=== PATIENT | male | born 1970 | race Caucasian/White ===

== ENCOUNTER 2020-09-11 06:54 | Outpatient (REF) | payer OTHER, SELFPAY ==
--- NOTE | ~2020-09-11 | XR_ITS ---
EXAMINATION: XR FOOT, RIGHT CLINICAL INFORMATION: Right foot pain. Question osteoarthritis. COMPARISON: Right foot x-ray April 29, 2016 TECHNIQUE: AP, lateral, and oblique views of the right foot. FINDINGS: Bones of the midfoot are well aligned. No tarsal, metatarsal or phalangeal fracture. Prominent osteophyte again noted involving the lateral aspect of the first MCP joint. Other MTP and IP joints are well-maintained diffusely. No focal soft tissue swelling. Prominent posterior and plantar calcaneal enthesophytes again noted. No gross ankle joint effusion. XR/XR foot RT min 3V IMPRESSION: Similar mild degenerative changes of the foot without fracture.
[2020-09-11 08:32] LABS: MANUAL DIFF FLAG NO
[2020-09-11 08:39] LABS: Basophils Absolute Auto 0.1 X10*3/uL (0.0-0.2); Basophils Percent Auto 0.7 % (0-2); Eosinophils Absolute Auto 0.3 X10*3/uL (0.0-0.4); Eosinophils Percent Auto 3.6 % (0-4); Hematocrit 43.9 % (42-52); Hemoglobin 14.8 g/dl (14.0-18.0); Imm Gran Abs Auto 0.03 X10*3/uL (0.00-0.03); Imm Gran Pct Auto 0.4 % (0.0-0.4); Lymphocytes Percent Auto 29.8 % (20-40); Mean Corpuscular HGB Conc 33.7 g/dl (31.0-36.0); Mean Corpuscular Hemoglobin 29.2 pg (27.0-33.0); Mean Corpuscular Volume 86.8 fL (80-98); Mean Platelet Volume 8.9 fL (9.4-12.4); Monocytes Absolute Auto 0.5 X10*3/uL (0.1-1.2); Monocytes Percent Auto 7.7 % (2-11); Neutrophils Percent Auto 57.8 % (45-73); Platelet Count 195 X10*3/uL (160-400); Red Blood Count 5.06 X10*6/uL (4.60-5.80); Red Cell Distribution Width 12.8 % (11.0-16.0); White Blood Count 6.9 X10*3/uL (4.8-10.8)
[2020-09-11 09:18] LABS: Alanine Aminotransferase 45 U/L (0-40); Albumin Level 4.3 g/dL (3.5-5.0); Alkaline Phosphatase 69 U/L (39-117); Anion Gap 12 (12-20); Aspartate Amino Transferase 25 U/L (5-37); Bilirubin Total 0.7 mg/dL (0.0-1.0); Blood Urea Nitrogen 15 mg/dL (9-16); Calcium 9.3 mg/dL (8.4-10.2); Carbon Dioxide 29 mmol/L (22-29); Chloride 100 mmol/L (96-108); Cholesterol 210 mg/dL; Estimated Glomerular Filt Rate > 60; Glucose Fasting 168 mg/dL (60-99); HDL Cholesterol 28 mg/dL; LDL Cholesterol Calculated 117 mg/dl; Potassium 5.1 mmol/L (3.3-5.1); Sodium 136 mmol/L (135-145); Total Protein 7.4 g/dL (6.5-8.0); Triglycerides 329 mg/dL
[2020-09-11 09:25] LABS: Thyroid Stimulating Hormone 3.81 uIU/mL (0.32-4.0)
[2020-09-11 11:04] LABS: Glucose Urine UA NEG (NEG); Leukocyte Esterase Urine NEG (NEG); Nitrite Urine NEG (NEG); PH 6.5 (5.0-8.0); Urine Blood NEG (NEG); Urine Ketones NEG (NEG); Urine Protein NEG (NEG-TRACE)
[2020-09-11 11:07] LABS: Appearance Urine CLEAR; Color Urine YELLOW
[2020-09-11 11:32] LABS: Creatinine Urine 143.64 mg/dL
== END 2020-09-11 06:55 | disposition home or self-care (01) ==
LOC: HO.LAB 06:54
PROVIDERS: PCP Internal Medicine; Visit Provider Internal Medicine
DX: Z00.00 Encounter for general adult medical examination without abnormal findings (principal); M79.641 Pain in right hand; R63.5 Abnormal weight gain; Z12.5 Encounter for screening for malignant neoplasm of prostate
CPT/HCPCS: 36415; 73630; 80053; 80061; 81003; 82043; 84153; 84443; 85025

== ENCOUNTER 2020-11-26 10:12 | Day surgery (SDC) | payer OTHER, SELFPAY ==
[2020-11-21 15:34] VITALS: BMI 46.3
--- NOTE | 2020-11-23 08:20 | P.CONAN_ITS ---
Documented by User: Sarah Gtz 11/23/20 10:49 HPI - Anesthesia Eval Consult details Narrative: 50yo M for Upper Endoscopy and Colonoscopy [facility] Past Medical History Medical History COPD (chronic obstructive pulmonary disease) GERD (gastroesophageal reflux disease) Heel pierre Social History Social History Patient Tobacco Use Status: Former Tobacco user Use of substances other than those prescribed or required for medical reasons: Yes Are you DNR?: No Advance Directives: No Advance Directives Information Provided: Yes Meds Allergies Allergy/AdvReac Type Severity Reaction Status Date / Time No Known Allergies Allergy Verified 11/26/20 11:31 Home Medications Medication Instructions Recorded Confirmed Last Taken Type omeprazole 1 cap PO DAILY 11/23/20 11/23/20 11/26/20 08:30 History piroxicam 1 cap PO DAILY 11/23/20 11/23/20 Unknown History tadalafil 1 tab PO 11/23/20 11/23/20 Unknown History Exam Exam Date and Time: November 23, 2020 0820 Height,Weight and Vital Signs: Height 5 ft 9 in Weight 142.428 kg Assessment and Plan Assessment Anesthesia Assessment: Chart Reviewed Documented by User: Genny Latham 11/26/20 12:44 [facility] Past Medical History Medical History COPD (chronic obstructive pulmonary disease) GERD (gastroesophageal reflux disease) Heel pierre Social History Social History Patient Tobacco Use Status: Former Tobacco user Use of substances other than those prescribed or required for medical reasons: Yes Are you DNR?: No Advance Directives: No Advance Directives Information Provided: Yes Meds Allergies Allergy/AdvReac Type Severity Reaction Status Date / Time No Known Allergies Allergy Verified 11/26/20 11:31 Home Medications Medication Instructions Recorded Confirmed Last Taken Type omeprazole 1 cap PO DAILY 11/23/20 11/23/20 11/26/20 08:30 History piroxicam 1 cap PO DAILY 11/23/20 11/23/20 Unknown History tadalafil 1 tab PO 11/23/20 11/23/20 Unknown History Exam Airway Mallampati Class: II (Edentulous) TM Dist: >3cm Neck ROM: Full Denture: Upper and Lower Loose/Missing/Broken Teeth: Yes, Upper and Lower Heart: RRR Lungs: distant BS Assessment and Plan Assessment Anesthesia Assessment: Anesthesia Plan Discussed and Chart Reviewed Final Anesthetic Review NPO: Yes ASA Class: III Final Preanesthetic Review: Meds/Allgs Chart Reviewed, Consent Obtained/Reviewed and Anes Risks/Benef Reviewed Patient Risk: Intermediate Procedure Risk: Intermediate Anesthetic Plan Anesthetic Plan: MAC: Disposition: Standard PACU
[2020-11-26 11:57] VITALS: BP 131/91; PULSE 83; RESP 18; TEMP 36.3; O2SAT 98
[2020-11-26] MEDS: Lactated Ringers 1,000 ML 100 ML IVCONT (11:58)
[2020-11-26 14:08] VITALS: BP 118/66; PULSE 80; RESP 18; TEMP 37; O2SAT 95
--- NOTE | 2020-11-26 14:15 | P.BOP_ITS ---
Brief Operative Note Date of Service: 11/26/20 Pre-op diagnosis: GERD, Screening Post-op diagnosis: other (Colon polyps, Hiatal hernia, Duodenitis) Procedure: EGD with biopsies, Colonoscopy to the cecum with snare polypectomy at 30cm, and in the cecum with placement of 4 Resolution clips on the cecal polypectomy site. Surgeon: Mac Stout Anesthesia: MAC Was an Tetryl Boiling Tub Operator used for this Procedure?: No Estimated blood loss (mL): 4.0 Pathology: other (A. Gastric antrum B. EG Junction at 40cm C. Cecal polyp D. Polyp at 30cm) Condition: stable Disposition: PACU
[2020-11-26 14:23] VITALS: BP 126/85; PULSE 72; RESP 20; O2SAT 97
--- NOTE | 2020-11-26 15:02 | OP_ITS ---
SURGEON: Mac Stout MD PREOPERATIVE DIAGNOSIS: POSTOPERATIVE DIAGNOSIS: PROCEDURE PERFORMED: Esophagogastroduodenoscopy with biopsies, and colonoscopy to the cecum with snare polypectomy and placement of resolution clips. Full consent has been obtained from him for this, including risks of bleeding and perforation. ESTIMATED BLOOD LOSS: COMPLICATIONS: ANESTHESIA: Monitored anesthesia care. ASSISTANTS: SPECIMENS: PREOPERATIVE DIAGNOSES: Gastroesophageal reflux and colorectal cancer screening. POSTOPERATIVE DIAGNOSES: Gastroesophageal reflux and colorectal cancer screening, hiatal hernia, mild duodenitis, colon polyps, internal hemorrhoids. DESCRIPTION OF PROCEDURE: The patient was placed in the left lateral decubitus position. The Olympus video gastroscope was passed in the posterior oropharynx and upper esophagus under direct vision. The scope was passed slowly to the distal esophagus. The gastroesophageal junction appeared at 40 cm. There was some minimal irregularity consistent with reflux, but no evidence of any esophagitis nor any definitive evidence of Harris's mucosa. There was a small hiatal hernia. The scope was advanced to the pylorus and the duodenum was cannulated to the descending portion. The duodenum including the bulb was carefully inspected and appeared normal other than a very minimal duodenitis in the duodenal bulb. The scope was withdrawn back into the stomach. The gastric antrum and body appeared normal with good peristalsis. The scope was retroflexed visualizing the proximal stomach carefully, which appeared normal, without any sign of mass or ulceration. The scope was straightened. Biopsies were obtained from the gastric antrum. The scope was withdrawn back into the esophagus. Biopsies were obtained at the EG junction at 40 cm. Proximal to this, the esophageal mucosa appeared normal. The scope was withdrawn from the patient. He was turned around for the colonoscopy. The digital rectal exam revealed no abnormalities. The Olympus video pediatric colonoscope was entered into the rectum and advanced easily to the cecum. Once in the cecum, I did identify cecal pouch with appendiceal orifice and a normal-appearing ileocecal valve. The entire cecum was well visualized. In the cecum, was a lobulated raised polypoid lesion measuring approximately 3 cm in length and 1 cm in diameter. The remainder of the cecum appeared normal. This was removed in piecemeal fashion with snare polypectomy. Post- polypectomy, there did appear to be some small amount of residual polyp tissue remaining. However, I opted to place 4 resolution clips onto the polypectomy site rather than perform anymore polyp removal. There was good deployment and good hemostasis, as well as good opposition of the polypectomy borders. I then used a retrieval net to obtain the large pieces of the polyp by withdrawing it out of the colonoscope on 2 separate occasions. The scope was advanced back to the polypectomy site, which appeared to be stable without any sign of bleeding and the [address]. Again, there may have been some residual polyp tissue remaining, but this was not removed. The scope was then slowly withdrawn assessing all mucosal surfaces carefully. For the most part, preparation was excellent. At 30 cm, was an approximately 10 mm polyp, which was snared and recovered by suction. The polypectomy site appeared clean, without any sign of residual polyp nor bleeding. I did not visualize any other polyps, colitis, nor angiodysplasia. In the rectum, the scope was retroflexed visualizing internal hemorrhoids, but no other pathology. The rectal mucosa appeared normal. The scope was straightened out and withdrawn from the patient. He tolerated both procedures well and was returned to the recovery area in stable condition. IMPRESSION: 1. Colon polyps, status post snare polypectomy, with placement of resolution clips on the cecal polypectomy site. 2. Internal hemorrhoids. 3. Hiatal hernia, gastroesophageal reflux. 4. Mild duodenitis. PLAN: The results of the pathology will be checked. In regard to the cecal polyp, we most likely will need to go back and do a followup colonoscopy within 6 months unless the cecal polyp shows signs of carcinoma, in which case he would probably need surgery . He will continue his omeprazole for symptomatic relief of his reflux. He was advised not to use any aspirin nor NSAIDs for 2 weeks. He will be seen in followup. This has been discussed with his . MD CARLOS Sierra/MAAME / [id number] CHELSEA
== END 2020-11-26 14:51 | disposition home or self-care (01) ==
PROVIDERS: PCP Internal Medicine; Visit Provider Internal Medicine
PROC: (CPT 45385; principal; 2020-11-26 11:40)
DX: Z12.11 Encounter for screening for malignant neoplasm of colon (principal); D12.0 Benign neoplasm of cecum; D12.5 Benign neoplasm of sigmoid colon; K64.8 Other hemorrhoids; K21.9 Gastro-esophageal reflux disease without esophagitis; K29.80 Duodenitis without bleeding; K44.9 Diaphragmatic hernia without obstruction or gangrene; J44.9 Chronic obstructive pulmonary disease, unspecified; Z79.899 Other long term (current) drug therapy; Z87.891 Personal history of nicotine dependence
CPT/HCPCS: 45385; 43239; 88305; 88342; J2405; J2765

== ENCOUNTER 2022-01-01 12:12 | Day surgery (SDC) | payer OTHER, SELFPAY ==
[2021-12-26 12:24] VITALS: BMI 44.9
[2022-01-01 12:31] VITALS: BP 157/96; PULSE 78; RESP 18; TEMP 36.5; O2SAT 96
--- NOTE | 2022-01-01 12:59 | HO.ANESPROP2 ---
[facility] Past Medical History Medical History COPD (chronic obstructive pulmonary disease) GERD (gastroesophageal reflux disease) Heel spur Obesity Family History Family history of problems with anesthesia: No Surgical History Surgical History (Updated 12/26/21 @ 12:24 by Alma Martinez RN) History of esophagogastroduodenoscopy (EGD) Hx of colonoscopy History of Problems with Anesthesia: No Social History Social History Patient Tobacco Use Status: Former Tobacco user Use of substances other than those prescribed or required for medical reasons: Yes Substance Use Frequency: Weekly Are you DNR?: No Advance Directives: No Advance Directives Information Provided: Yes Meds Allergies Allergy/AdvReac Type Severity Reaction Status Date / Time No Known Allergies Allergy Verified 12/26/21 12:21 Active Medications: Current Medications Ondansetron HCl (Ondansetron Hcl 4 Mg/2 Ml Vial) 4 mg IVPUSH ONCE PRN PRN Reason: Nausea and Vomiting Sodium Biphosphate/Sodium Phosphate (Sodium Phosphate,[place]la[place]-Dibasic 133 Ml Enema) 133 ml WA ONCE PRN PRN Reason: Poor Colonoscopy Prep Results Home Medications Medication Instructions Recorded Confirmed Last Taken Type omeprazole 20 mg capsule,delayed 1 cap PO DAILY 11/23/20 12/26/21 11/26/20 08:30 History release tadalafil 10 mg tablet 1 tab PO 11/23/20 11/23/20 Unknown History Exam Exam Date and Time: January 01, 2022 1259 Height,Weight and Vital Signs: Height 5 ft 9 in Weight 137.892 kg Last Vital Signs Temp 97.7 F 01/01/22 12:31 Pulse 78 01/01/22 12:31 Resp 18 01/01/22 12:31 BP 157/96 H 01/01/22 12:31 Pulse Ox 96 01/01/22 12:31 O2 Del Method 01/01/22 12:31 Airway Mallampati Class: III TM Dist: >3cm Neck ROM: Full Denture: Upper and Lower Heart: rrr Lungs: clear Assessment and Plan Final Anesthetic Review Family History of Problems with Anesthesia: No History of Problems with Anesthesia: No NPO: Yes ASA Class: II Final Preanesthetic Review: No Changes in Pt Med Stat, Meds/Allgs Chart Reviewed, Consent Obtained/Reviewed and Anes Risks/Benef Reviewed Patient Risk: Intermediate Procedure Risk: Low Anesthetic Plan Anesthetic Plan: MAC: Disposition: Standard PACU
[2022-01-01 14:20] VITALS: BP 127/74; PULSE 77; RESP 16; TEMP 36.4; O2SAT 96
--- NOTE | 2022-01-01 14:23 | P.BOP_ITS ---
Brief Operative Note Date of Service: 01/01/22 Pre-op diagnosis: Screening, History of colon polyps Post-op diagnosis: other (Colon polyps) Procedure: Colonoscopy to the cecum with cold snare polypectomy x 2 at approx 60cm, hot snare polypectomy with placement of 2 Resolution clips in the proximal transverse colon, and hot snare polypectomy with placement of 3 Resolution clips in the cecum Surgeon: Mac Stout Anesthesia: MAC Was an Animal Caregiver used for this Procedure?: No Estimated blood loss (mL): 2.0 Pathology: other (A. Proximal transverse colon polyp B. Cecal polyp C. Polyps at 60cm) Condition: stable Disposition: PACU
[2022-01-01 14:35] VITALS: BP 126/98; PULSE 73; RESP 16; TEMP 36.8; O2SAT 97
--- NOTE | 2022-01-01 15:03 | PC.NURSE ---
dressing at bedside no complaints.
--- NOTE | 2022-01-02 02:30 | OP_ITS ---
SURGEON: Mac Stout MD INDICATIONS: The patient presents for evaluation of personal history of colon polyps and colorectal cancer screening. Full consent obtained from him for this, including risks of bleeding and perforation. PREOPERATIVE DIAGNOSIS: POSTOPERATIVE DIAGNOSIS: Colorectal cancer screening and personal history of colon polyps. Colon polyps, sigmoid diverticulosis, and internal hemorrhoids. PROCEDURE PERFORMED: ESTIMATED BLOOD LOSS: COMPLICATIONS: ANESTHESIA: Monitored anesthesia care. ASSISTANTS: SPECIMENS: PREOPERATIVE DIAGNOSES: Colorectal cancer screening and personal history of colon polyps. DESCRIPTION OF PROCEDURE: The patient was placed in the left lateral decubitus position. The digital rectal exam revealed no abnormalities. The Olympus video pediatric colonoscope was entered into the rectum and advanced easily to the cecum. Once in the cecum, I did identify cecal pouch with appendiceal orifice and a normal-appearing ileocecal valve. The entire cecum was well visualized. In the cecum, in an area of scarring from the previous polypectomy from last year, there was some residual polyp tissue. One area was approximately 1.5 cm in diameter. The other area was only 5 mm in diameter. The remainder of the area appeared consistent with scarring, but no other sign of residual polyp. The residual polyp areas were both removed by hot snare polypectomy and recovered by suction. There was no sign of any definitive residual polyp tissue nor any bleeding. I did place two Resolution clips on the larger polyp site and a single resolution clip on the smaller one. There was good deployment and good hemostasis. The remainder of the cecum and ileocecal valve appeared normal. The scope was then slowly withdrawn assessing all mucosal surfaces carefully. Preparation was excellent. In the proximal transverse colon, was an approximately 1.2 cm polyp, which was removed by hot snare polypectomy and recovered by suction. Post-polypectomy, there did not appear to be any residual polyp tissue nor bleeding. I did place two Resolution clips on the polypectomy site with good deployment and good hemostasis. At approximately 60 cm, were two less than 5 mm polyps, which were each removed by cold snare polypectomy and recovered by suction. There was no sign of any residual polyp tissue nor any sign of significant bleeding. I did not visualize any other polyps, colitis, nor angiodysplasia. There was a mild amount of sigmoid diverticulosis. In the rectum, scope was retroflexed visualizing some small internal hemorrhoids, but no other pathology. The rectal mucosa appeared normal. The scope was straightened and withdrawn from the patient. He tolerated the procedure well and was returned to the recovery area in stable condition. IMPRESSION: 1. Colon polyps. 2. Mild diverticulosis. 3. Internal hemorrhoids. PLAN: The results of the pathology will be checked. He was advised not to use any aspirin and NSAIDs for least 2 weeks. He should undergo another colonoscopy between 1 and 2 years. He will see me otherwise on a p.r.n. basis. This has been discussed with his . PROCEDURES PERFORMED: Colonoscopy to the cecum with hot snare polypectomies, cold snare polypectomies, and placement of Resolution clips. MD CARLOS Sierra/MAAME / [id number] MTDJeny
== END 2022-01-01 15:30 | disposition home or self-care (01) ==
PROVIDERS: PCP Internal Medicine; Visit Provider Internal Medicine
PROC: 0DJD8ZZ Inspection of Lower Intestinal Tract, Via Natural or Artificial Opening Endoscopic (ICD-10-PCS; CPT 45378; principal; 2022-01-01 13:50)
DX: Z12.11 Encounter for screening for malignant neoplasm of colon (principal); Z86.010 Personal history of colon polyps; Z83.71 Family history of colonic polyps; D12.0 Benign neoplasm of cecum; D12.3 Benign neoplasm of transverse colon; D12.4 Benign neoplasm of descending colon; K57.30 Diverticulosis of large intestine without perforation or abscess without bleeding; K64.8 Other hemorrhoids; K21.9 Gastro-esophageal reflux disease without esophagitis; J44.9 Chronic obstructive pulmonary disease, unspecified; Z79.1 Long term (current) use of non-steroidal anti-inflammatories (NSAID); Z79.899 Other long term (current) drug therapy
CPT/HCPCS: 45385; 88305

== ENCOUNTER 2022-03-20 06:29 | Outpatient (REF) | payer OTHER, SELFPAY ==
[2022-03-20 06:34] LABS: MANUAL DIFF FLAG NO
--- NOTE | 2022-03-20 06:49 | ECG_ITS ---
Test Reason : r/o ischemia Blood Pressure : / mmHG Vent. Rate : 065 BPM Atrial Rate : 065 BPM P-R Int : 140 ms QRS Dur : 090 ms QT Int : 380 ms P-R-T Axes : 062 027 020 degrees QTc Int : 395 ms Normal sinus rhythm Normal ECG No previous ECGs available Referred By: Randall Sharpe Electronically Signed By:ANNELIESE SHARPE MD
[2022-03-20 07:24] LABS: Basophils Percent Auto 0.5 % (0-2); Eosinophils Absolute Auto 0.1 X10*3/uL (0.0-0.4); Eosinophils Percent Auto 2.1 % (0-4); Hematocrit 44.8 % (42.0-52.0); Hemoglobin 15.2 g/dl (14.0-18.0); Imm Gran Abs Auto 0.02 X10*3/uL (0.00-0.03); Imm Gran Pct Auto 0.4 % (0.0-0.4); Lymphocytes Absolute Auto 1.8 X10*3/uL (1.2-4.9); Lymphocytes Percent Auto 31.5 % (20-40); Mean Corpuscular HGB Conc 33.9 g/dl (31.0-36.0); Mean Corpuscular Hemoglobin 28.3 pg (27.0-33.0); Mean Corpuscular Volume 83.3 fL (80.0-98.0); Mean Platelet Volume 8.8 fL (9.4-12.4); Monocytes Absolute Auto 0.4 X10*3/uL (0.1-1.2); Monocytes Percent Auto 6.8 % (2-11); Neutrophils Absolute Auto 3.4 x10*3/uL (2.0-8.3); Neutrophils Percent Auto 58.7 % (45-73); Platelet Count 206 X10*3/uL (160-400); Red Blood Count 5.38 X10*6/uL (4.60-5.80); Red Cell Distribution Width 12.7 % (11.0-16.0); White Blood Count 5.7 X10*3/uL (4.8-10.8)
[2022-03-20 07:53] LABS: Alanine Aminotransferase 53 U/L (0-40); Albumin Level 4.5 g/dL (3.5-5.0); Alkaline Phosphatase 80 U/L (39-117); Anion Gap 18 (12-20); Aspartate Amino Transferase 41 U/L (5-37); Bilirubin Total 0.8 mg/dL (0.0-1.0); Blood Urea Nitrogen 14 mg/dL (9-16); Calcium 10.1 mg/dL (8.4-10.2); Carbon Dioxide 24 mmol/L (22-29); Chloride 99 mmol/L (96-108); Cholesterol 219 mg/dL; Estimated Glomerular Filt Rate > 60; Glucose Fasting 194 mg/dL (60-99); HDL Cholesterol 30 mg/dL; LDL Cholesterol Calculated 130 mg/dl; Potassium 4.3 mmol/L (3.3-5.1); Sodium 137 mmol/L (135-145); Total Protein 8.2 g/dL (6.5-8.0); Triglycerides 297 mg/dL
[2022-03-20 08:15] LABS: Prostate Specific Antigen 0.28 ng/mL (<0.05-4.0); Thyroid Stimulating Hormone 5.59 uIU/mL (0.32-4.0)
[2022-03-20 10:07] LABS: Vitamin B12 442 pg/mL (200-900)
== END 2022-03-20 06:30 | disposition home or self-care (01) ==
LOC: HO.LAB 06:29
PROVIDERS: PCP Internal Medicine; Visit Provider Internal Medicine
DX: Z00.00 Encounter for general adult medical examination without abnormal findings (principal); Z12.5 Encounter for screening for malignant neoplasm of prostate; R53.83 Other fatigue
CPT/HCPCS: 36415; 80053; 80061; 82607; 84153; 84443; 85025; 93005

== ENCOUNTER 2022-10-07 06:23 | Outpatient (REF) | payer OTHER, SELFPAY ==
[2022-10-07 08:04] LABS: Alanine Aminotransferase 40 U/L (0-40); Albumin Level 4.2 g/dL (3.5-5.0); Alkaline Phosphatase 77 U/L (39-117); Anion Gap 12 (12-20); Aspartate Amino Transferase 26 U/L (5-37); Bilirubin Total 0.8 mg/dL (0.0-1.0); Blood Urea Nitrogen 15 mg/dL (9-16); Calcium 9.4 mg/dL (8.4-10.2); Carbon Dioxide 28 mmol/L (22-29); Chloride 101 mmol/L (96-108); Cholesterol 157 mg/dL; Estimated Glomerular Filt Rate > 60; Glucose Fasting 223 mg/dL (60-99); HDL Cholesterol 27 mg/dL; LDL Cholesterol Calculated 91 mg/dl; Potassium 4.9 mmol/L (3.3-5.1); Sodium 136 mmol/L (135-145); Total Protein 7.3 g/dL (6.5-8.0); Triglycerides 199 mg/dL
== END 2022-10-07 06:24 | disposition home or self-care (01) ==
LOC: HO.LAB 06:23
PROVIDERS: PCP Internal Medicine; Visit Provider Internal Medicine
DX: E78.00 Pure hypercholesterolemia, unspecified (principal)
CPT/HCPCS: 36415; 80053; 80061

== ENCOUNTER 2022-11-21 06:11 | Outpatient (REF) | payer OTHER, SELFPAY ==
[2022-11-21 08:29] LABS: Anion Gap 16 (12-20); Blood Urea Nitrogen 14 mg/dL (9-16); Calcium 9.8 mg/dL (8.4-10.2); Carbon Dioxide 25 mmol/L (22-29); Chloride 101 mmol/L (96-108); Estimated Glomerular Filt Rate > 60; Glucose Random 195 mg/dL (60-115); Potassium 4.5 mmol/L (3.3-5.1); Sodium 137 mmol/L (135-145)
[2022-11-21 08:41] LABS: Estimated Average Glucose 206 mg/dL; Hemoglobin A1c % 8.8 %
[2022-11-21 08:50] LABS: Free T4 (Free Thyroxine) 0.97 ng/dL (0.71-1.85); Thyroid Stimulating Hormone 5.33 uIU/mL (0.32-4.0)
== END 2022-11-21 06:12 | disposition home or self-care (01) ==
LOC: HO.LAB 06:11
PROVIDERS: PCP Internal Medicine; Visit Provider Internal Medicine
DX: E11.9 Type 2 diabetes mellitus without complications (principal); E03.9 Hypothyroidism, unspecified; E78.00 Pure hypercholesterolemia, unspecified
CPT/HCPCS: 36415; 80048; 83036; 84439; 84443

== ENCOUNTER 2022-11-25 11:06 | Outpatient (REF) | payer OTHER, SELFPAY | END 2022-11-25 11:07 | disposition home or self-care (01) | LOC: HO.SH 11:06 | PROVIDERS: Visit Provider Internal Medicine | DX: Z01.118 Encounter for examination of ears and hearing with other abnormal findings (principal); H90.3 Sensorineural hearing loss, bilateral | CPT/HCPCS: 92557; 92567 ==

== ENCOUNTER 2023-01-24 11:51 | Outpatient (REF) | payer BC, SELFPAY ==
[2023-01-24 13:41] LABS: Estimated Average Glucose 180 mg/dL; Hemoglobin A1c % 7.9 % (<6.0)
[2023-01-24 13:46] LABS: Anion Gap 13 (12-20); Blood Urea Nitrogen 12 mg/dL (9-16); Calcium 9.6 mg/dL (8.4-10.2); Carbon Dioxide 26 mmol/L (22-29); Chloride 101 mmol/L (96-108); Estimated Glomerular Filt Rate > 60; Glucose Random 205 mg/dL (60-115); Potassium 4.6 mmol/L (3.3-5.1); Sodium 135 mmol/L (135-145)
[2023-01-24 14:04] LABS: Free T4 (Free Thyroxine) 0.85 ng/dL (0.71-1.85); Thyroid Stimulating Hormone 3.92 uIU/mL (0.32-4.0)
== END 2023-01-24 11:52 | disposition home or self-care (01) ==
LOC: HO.HMGCLDS 11:51
PROVIDERS: PCP Internal Medicine; Visit Provider Internal Medicine
DX: E11.9 Type 2 diabetes mellitus without complications (principal); E03.9 Hypothyroidism, unspecified
CPT/HCPCS: 36415; 80048; 83036; 84439; 84443

== ENCOUNTER 2023-04-16 06:00 | Outpatient (REF) | payer BC, SELFPAY ==
[2023-04-16 08:01] LABS: Estimated Average Glucose 166 mg/dL; Hemoglobin A1c % 7.4 % (<6.0)
[2023-04-16 08:15] LABS: Anion Gap 12 (12-20); Blood Urea Nitrogen 14 mg/dL (9-16); Calcium 9.4 mg/dL (8.4-10.2); Carbon Dioxide 27 mmol/L (22-29); Chloride 103 mmol/L (96-108); Estimated Glomerular Filt Rate > 60; Glucose Random 167 mg/dL (60-115); Potassium 4.3 mmol/L (3.3-5.1); Sodium 138 mmol/L (135-145)
== END 2023-04-16 06:01 | disposition home or self-care (01) ==
LOC: HO.LAB 06:00
PROVIDERS: PCP Internal Medicine; Visit Provider Internal Medicine
DX: E11.9 Type 2 diabetes mellitus without complications (principal); K21.9 Gastro-esophageal reflux disease without esophagitis; E78.00 Pure hypercholesterolemia, unspecified
CPT/HCPCS: 36415; 80048; 83036

== ENCOUNTER 2023-07-31 06:05 | Outpatient (REF) | payer BC, SELFPAY ==
[2023-07-31 06:26] LABS: MANUAL DIFF FLAG NO
[2023-07-31 06:56] LABS: Basophils Percent Auto 0.7 % (0-2); Eosinophils Absolute Auto 0.2 X10*3/uL (0.0-0.4); Eosinophils Percent Auto 2.9 % (0-4); Hematocrit 43.5 % (42.0-52.0); Imm Gran Abs Auto 0.02 X10*3/uL (0.00-0.03); Imm Gran Pct Auto 0.3 % (0.0-0.4); Lymphocytes Absolute Auto 2.1 X10*3/uL (1.2-4.9); Mean Corpuscular HGB Conc 34.5 g/dl (31.0-36.0); Mean Corpuscular Hemoglobin 28.4 pg (27.0-33.0); Mean Corpuscular Volume 82.4 fL (80.0-98.0); Mean Platelet Volume 8.5 fL (9.4-12.4); Monocytes Absolute Auto 0.5 X10*3/uL (0.1-1.2); Monocytes Percent Auto 8.8 % (2-11); Neutrophils Absolute Auto 3.1 x10*3/uL (2.0-8.3); Neutrophils Percent Auto 52.3 % (45-73); Platelet Count 189 X10*3/uL (160-400); Red Blood Count 5.28 X10*6/uL (4.60-5.80); Red Cell Distribution Width 12.9 % (11.0-16.0); White Blood Count 5.9 X10*3/uL (4.8-10.8)
[2023-07-31 07:02] LABS: Estimated Average Glucose 174 mg/dL; Hemoglobin A1c % 7.7 % (<6.0)
[2023-07-31 07:22] LABS: Alanine Aminotransferase 35 U/L (0-40); Albumin Level 4.2 g/dL (3.5-5.0); Alkaline Phosphatase 72 U/L (39-117); Anion Gap 10 (12-20); Aspartate Amino Transferase 24 U/L (5-37); Bilirubin Total 0.8 mg/dL (0.0-1.0); Blood Urea Nitrogen 12 mg/dL (9-16); Calcium 9.6 mg/dL (8.4-10.2); Carbon Dioxide 28 mmol/L (22-29); Chloride 103 mmol/L (96-108); Cholesterol 162 mg/dL (<200); Estimated Glomerular Filt Rate > 60; Glucose Fasting 181 mg/dL (60-99); HDL Cholesterol 28 mg/dL (>40); LDL Cholesterol Calculated 96 mg/dL (<100); Potassium 4.3 mmol/L (3.3-5.1); Sodium 137 mmol/L (135-145); Total Protein 7.8 g/dL (6.5-8.0); Triglycerides 194 mg/dL (<150)
[2023-07-31 07:40] LABS: Prostate Specific Antigen 0.25 ng/mL (<0.05-4.0)
[2023-07-31 07:41] LABS: Free T4 (Free Thyroxine) 0.91 ng/dL (0.71-1.85)
[2023-07-31 08:14] LABS: Creatinine Urine 249.23 mg/dL; Microalbum/Creatinine Ratio Ur 15.6 ug/mg cr (<30)
== END 2023-07-31 06:06 | disposition home or self-care (01) ==
LOC: HO.LAB 06:05
PROVIDERS: PCP Internal Medicine; Visit Provider Internal Medicine
DX: Z12.5 Encounter for screening for malignant neoplasm of prostate (principal); E11.9 Type 2 diabetes mellitus without complications; E78.00 Pure hypercholesterolemia, unspecified; K21.9 Gastro-esophageal reflux disease without esophagitis; R79.89 Other specified abnormal findings of blood chemistry
CPT/HCPCS: 36415; 80053; 80061; 82043; 82570; 83036; 84153; 84439; 84443; 85025

== ENCOUNTER 2023-12-01 06:10 | Outpatient (REF) | payer BC, SELFPAY ==
[2023-12-01 07:41] LABS: Estimated Average Glucose 189 mg/dL; Hemoglobin A1c % 8.2 % (<6.0)
[2023-12-01 07:48] LABS: Anion Gap 17 (12-20); Blood Urea Nitrogen 13 mg/dL (9-16); Calcium 9.5 mg/dL (8.4-10.2); Carbon Dioxide 23 mmol/L (22-29); Chloride 103 mmol/L (96-108); Estimated Glomerular Filt Rate > 60; Glucose Random 190 mg/dL (60-115); Potassium 4.6 mmol/L (3.3-5.1); Sodium 138 mmol/L (135-145)
== END 2023-12-01 06:11 | disposition home or self-care (01) ==
LOC: HO.LAB 06:10
PROVIDERS: PCP Internal Medicine; Visit Provider Internal Medicine
DX: E11.9 Type 2 diabetes mellitus without complications (principal); K21.9 Gastro-esophageal reflux disease without esophagitis
CPT/HCPCS: 36415; 80048; 83036

== ENCOUNTER 2024-06-30 06:06 | Outpatient (REF) | payer BC, SELFPAY ==
--- OUTSIDE RECORDS SUMMARY | 2024-06-30 06:09 | XMS_ITS | Patient Health Record ---
Author Organization [facility] Address [address] [place] [address] Care Team Providers Care Merchandise Stocker Name Role Phone Randall Fuchs MD Primary Care Provider Mac Spence Unavailable [phone] ALLERGIES Allergen (clinical drug ingredient) Drug/Non Drug Allergy documented on EMR Reaction Allergy Type Onset Date Status Pollen Pollen Unknown Allergy Active REASON FOR REFERRAL No Information MEDICATIONS Medication SIG (Take, Route, Fr equency, Duration) Notes Start Date End Date Status Omeprazole 20 MG Oral Act kelsi Advil Active IMMUNIZATIONS Vaccine Route Administration Date Status Comme nts Influenza Unknown 02/29/2020 Administered Influenza Unknown 01/16/2021 Administered SOCIAL HISTORY Tobacco Use: Social History Observation Description Date Details (start date - stop date) Never Smoker NA - NA Sex Assigned At : Social History Observation Description Sex Assigned At Unknown Tobacco Use/Smoking Question Answer Notes Patient is a nonsmoker Alcohol Screen Question Answer Notes Did you have a drink contain ing alcohol in the past year? Yes How often did you have a dri nk containing alcohol in the past year? 4 or more times a week (4 points) How many drinks did you have on a typical day when you were drinking in the past year? 3 or 4 drinks (1 point) How often did you have 6 or more drinks on one occasion in the past year? Less than monthly (1 point) Points 6 Interpretation Positive PROBLEMS Problem Type ICD Code Onset Dates Problem Status W/U Status Risk SNOMED Code Notes Problem Gastroesophageal reflux disease, unspecified whether esophagitis present (K21.9) Active confirmed 833294386 Problem Encounter for screening for malignant neoplasm of colon (Z12.11) Active confirmed 152386458 Problem Duodenitis (K29.80) Active confirmed Du odenitis (47000096) Problem Esophageal reflux (K21.9) Active confirmed Esophageal reflux (575384771) Problem Personal history of colonic polyps (Z86.010) Active confirmed History of poly p of colon (situation) (250111308) Problem Encounter for other preprocedural examination (Z01.818) Active confirmed Pre-procedure evaluation check (755231258) Problem Diverticulosis of colon (K57.30) Active confirmed Diverticulosi s of colon (045206948) PLAN OF TREATMENT Pending Test Test Name Order Date Pathology 01/01/2022 Future Test Test Name Order Date UPPER GI ENDOSCOPY 11/06/2020 COLONOSCOPY 11/06/2020 COLONOSCOPY 11/20/2021 Insurance Providers Payer Name Payer Address Payer Phone Subscriber Number Group Number Insured Name Patient Relationship to Insured Coverage Start Date Coverage End Date [facility] [address] [place] [phone] [id number] MATTHEW PEDROZA Self - patient is the insured MEDICAL (GENERAL) HISTORY Medical History History ICD Code Heel spurs COPD Sleep study was negative for sleep apnea GERD-upper endoscopy in November of 2020 revealed a small hiatal hernia, but no evidence of any significant esophagitis nor Harris's esophagus; there was a mild gastritis but the biopsies were negative for H. pylori Denies ME,DM,CVA,Lung disease,renal dise ase Screening colonoscopy in Nov revealed a large tubulovillous adenoma removed from the cecum and a relatively small tubular adenoma removed from the sigmoid colon; I felt that the majority of the cecal polyp was removed but did recommend a followup colonoscopy within 6-12 months. Surgical History Surgery Date(Month/Year)
--- OUTSIDE RECORDS SUMMARY | 2024-06-30 06:09 | XMS_ITS | Patient Health Record ---
Author Organization [facility] Address [address] [place] [address] Care Team Providers Care President And Chief Executive Officer Name Role Phone Randall Fuchs MD Primary Care Provider Karan Cartwright Unavailable [phone] Allergies Allergen (clinical drug ingredient) Drug/Non Drug Allergy documented on EMR Reaction Allergy Type Onset Date Status Pollen Pollen Unknown Allergy Active Reason For Referral No Information Medications Medication SIG (Take, Route, Fr equency, Duration) Notes Start Date End Date Status Feldene 20 MG 1 capsule with food Orally Once a day for 30 day(s) Active Walking Boot/Pneumatic As directed Wear Daily for Until further notice Active Physical Therapy . . . 2-3x/week for 3-4 weeks Active Omeprazole Active Immunizations Vaccine Route Administration Date Status Comme nts COVID-19 Pfizer BioNTech Vaccine Unknown 09/02/2020 Adm inistered 1# 08/10/20 Social History Tobacco Use: Social History Observation Description Date Details (start date - stop date) Former Smoker 09/21/1995 - NA Tobacco Use/Smoking Question Answer Notes Are you a: former smoker When did you start smoking? 09/21/1995 Additional Findings: Tobacco Non-User Ex-cigaret te smoker Alcohol Screen Question Answer Notes Did you have a drink contain ing alcohol in the past year? Yes How often did you have a dri nk containing alcohol in the past year? 2 to 3 times a week (3 points) Points 3 Interpretation Negative Tobacco use other than smoking: Question Answer Notes Are you an other tobacco user? No Plan Of Treatment No Information Insurance Providers Payer Name Payer Address Payer Phone Subscriber Number Group Number Insured Name Patient Relationship to Insured Coverage Start Date Coverage End Date [facility] [address] [place] [address] [phone] [id number] Petros Teran Self - patient is the insured Medical (General) History Medical History History ICD Code Chicken pox Surgical History Surgery Date(Month/Year) EGD/Colonoscopy 11/26/2020
[2024-06-30 06:32] LABS: MANUAL DIFF FLAG NO
[2024-06-30 07:49] LABS: Basophils Percent Auto 0.6 % (0-2); Eosinophils Absolute Auto 0.1 X10*3/uL (0.0-0.4); Eosinophils Percent Auto 2.3 % (0-4); Hematocrit 43.1 % (42.0-52.0); Hemoglobin 14.5 g/dl (14.0-18.0); Imm Gran Abs Auto 0.02 X10*3/uL (0.00-0.03); Imm Gran Pct Auto 0.4 % (0.0-0.4); Lymphocytes Absolute Auto 1.7 X10*3/uL (1.2-4.9); Lymphocytes Percent Auto 35.2 % (20-40); Mean Corpuscular HGB Conc 33.6 g/dl (31.0-36.0); Mean Corpuscular Hemoglobin 27.9 pg (27.0-33.0); Mean Platelet Volume 8.9 fL (9.4-12.4); Monocytes Absolute Auto 0.4 X10*3/uL (0.1-1.2); Monocytes Percent Auto 8.2 % (2-11); Neutrophils Absolute Auto 2.5 x10*3/uL (2.0-8.3); Neutrophils Percent Auto 53.3 % (45-73); Platelet Count 165 X10*3/uL (160-400); Red Blood Count 5.19 X10*6/uL (4.60-5.80); Red Cell Distribution Width 12.9 % (11.0-16.0); White Blood Count 4.8 X10*3/uL (4.8-10.8)
[2024-06-30 07:50] LABS: Appearance Urine Clear; Color Urine Yellow; Glucose Urine UA >=1000 mg/dL (Negative); Leukocyte Esterase Urine Negative (Negative); Nitrite Urine Negative (Negative); PH 6.5 (5.0-9.0); Specific Gravity - Urine >= 1.030 (1.005-1.025); UMIC TRIGGER UA YES; Urine Blood Negative (Negative); Urine Ketones Trace mg/dL (Negative); Urine Protein 30 (1+) mg/dL (Neg-Trace)
[2024-06-30 07:52] LABS: Bacteria Urine None Seen (None Seen); Hyaline Casts Urine 0-2 /LPF (0-2); RBC Urine 0-2 /HPF (0-2); Squamous Epithelial Cell Urine 0-2 /HPF (0-2); WBC Urine 0-5 /HPF (0-5)
[2024-06-30 07:55] LABS: Estimated Average Glucose 260 mg/dL; Hemoglobin A1c % 10.7 % (<6.0); Total Hemoglobin (HGBA1C) 3757.9295 umol/L
[2024-06-30 08:06] LABS: Creatinine Urine 179.11 mg/dL; Microalbum/Creatinine Ratio Ur 59.1 ug/mg cr (<30)
[2024-06-30 08:22] LABS: Alanine Aminotransferase 60 U/L (0-40); Albumin Level 4.2 g/dL (3.5-5.0); Alkaline Phosphatase 81 U/L (39-117); Anion Gap 16 (12-20); Aspartate Amino Transferase 46 U/L (5-37); Bilirubin Total 0.8 mg/dL (0.0-1.0); Blood Urea Nitrogen 10 mg/dL (9-16); Calcium 9.2 mg/dL (8.4-10.2); Carbon Dioxide 24 mmol/L (22-29); Chloride 101 mmol/L (96-108); Cholesterol 186 mg/dL (<200); Estimated Glomerular Filt Rate > 60; Glucose Fasting 248 mg/dL (60-99); HDL Cholesterol 31 mg/dL (>40); LDL Cholesterol Calculated 98 mg/dL (<100); Potassium 4.6 mmol/L (3.3-5.1); Sodium 136 mmol/L (135-145); Total Protein 7.9 g/dL (6.5-8.0); Triglycerides 287 mg/dL (<150)
[2024-06-30 08:42] LABS: Prostate Specific Antigen 0.24 ng/mL (<0.05-4.0)
== END 2024-06-30 06:07 | disposition home or self-care (01) ==
LOC: HO.LAB 06:06
PROVIDERS: PCP Internal Medicine; Visit Provider Internal Medicine
DX: E11.9 Type 2 diabetes mellitus without complications (principal); E78.00 Pure hypercholesterolemia, unspecified; K21.9 Gastro-esophageal reflux disease without esophagitis; Z12.5 Encounter for screening for malignant neoplasm of prostate
CPT/HCPCS: 36415; 80053; 80061; 81001; 82043; 82570; 83036; 84153; 85025

== ENCOUNTER 2024-09-20 15:35 | Outpatient (AMB) | payer BC, SELFPAY ==
--- NOTE | 2024-09-20 15:36 | MHC.PC.OV ---
Vital Signs 09/20/24 15:44 Height 5 ft 9 in Weight 131.542 kg BMI 42.8 BP 138/68 Respiration 16 Pulse 74 Pulse Source Pulse Oximeter Temp 97.7 F Temp Source Temporal Artery Scan Pulse Oximetry (%) 96 Oxygen Delivery Method Room Air Intake Visit Reasons: Routine - see comments Housekeeping Manager Required: No Accompanied by: Self / Same As Patient Allergies No Known Allergies Allergy (Verified 09/20/24 15:44) Medication List - Last Reconciled 09/20/24 by RAUL Jacobson atorvastatin 10 mg PO DAILY loratadine (Claritin) 10 mg PO DAILY metformin ER 500 mg PO DAILY omeprazole 1 cap PO DAILY tadalafil 1 tab PO Tobacco use date assessed: 09/20/24 Dental Screening Dental Screen Date: 09/20/24 Did you have a dental visit in the last 12 months?: No Did you have a dental problem in the last 6 months where you did not have access to dental care?: No Was dental information given to patient?: Patient has dentist (Dentures) HPI HPI Comments History of Present Illness Details History of Present Illness The patient is a 53 year old male presenting for a routine follow-up in the management of his uncontrolled diabetes. His last A1c was elevated at 10.7%, with a history of fluctuating control as evidenced by a previous level in the 7% range. He is currently taking metformin 500 mg daily. This diabetic condition is compounded by economic constraints in accessing certain medications. The diabetes has resulted in peripheral neuropathy, evidenced by tingling and nerve pain primarily on the dorsum of the right foot and left calf. These symptoms were noted in prior consultations but lacked follow-through due to physician transitions. Obesity is another chronic issue, although recent lifestyle modifications have resulted in a weight decrease, yet his weight remains in the 290 lb range. Accompanying this is a history of plantar fasciitis complicating physical activity due to heel spurs, for which previous therapies have only temporarily alleviated symptoms. A more determined treatment route is being sought for persistent heel pain. Review of Systems - Neurological: Reports tingling in the feet; reports sharp nerve pain in the left calf. - Musculoskeletal: Reports heel pain due to heel spurs; denies improvement with current therapy. - Endocrine: Reports historical elevation in A1c levels; denies awareness of recent blood sugar levels. - General: Reports weight loss effort and some success. Vital Signs - Blood Pressure: 138/72 mmHg Health Maintenance - Discussion on diet and weight management leading to a weight loss of approximately 10 pounds. - Advised on potential benefits of diabetic socks and shoe inserts. - Planned thyroid testing to assess impact on weight loss. Physical Exam Constitutional: Awake and alert, no apparent distress Heart: RRR, S1S2, no murmurs, no edema Lungs: CTA bilaterally, no wheezing Extremities: Sharp nerve pain on left calf, no calf tenderness Skin: Warm and dry Neuro: Alert and oriented x 3, neuropathy in feet, more on the right foot than the left, described as tingling and a sensation similar to tying shoes too tight. Assessment and Plan 1. Type 2 Diabetes Mellitus, uncontrolled Management includes ongoing metformin therapy and augmented monitoring of fasting blood glucose levels to aid in adjusting treatment plans. Hgb A1c ordered, medications to be adjusted pending results. Counseled on diabetic diet. Thyroid function tests are ordered to evaluate for any additional causes influencing weight. 2. Diabetic poly Neuropathy Symptom control focuses on support through lifestyle changes and use of diabetic socks to ease discomfort. Tight glucose management may also aid in symptom relief. 3. Obesity Class III The patient is motivated in weight loss efforts. Suggested physical activity modifications help accommodate plantar fasciitis, and thyroid assessment is pending to refine weight management strategies. 4. Plantar Fasciitis Plan includes podiatric consultation to explore better treatment options for heel spur discomfort, enabling improved mobility and compliance with exercise recommendations. Patient was informed and verbally consented to the use of an ambient scribe for clinic note documentation during this visit. Discussion Notes I discuss in detail the importance of managing uncontrolled diabetes to prevent complications such as neuropathy, emphasizing the need for consistent monitoring of blood sugar levels. I highlight potential adjustments in medication only if future lab results indicate necessity. I agree with the patient on continuing weight loss endeavors, with interim thyroid testing slated to identify any underlying issues hindering progress. I review the financial limitations impacting treatment options like gabapentin for neuropathy, exploring alternative comfort measures like diabetic socks. Additionally, I propose podiatric intervention to address plantar health, explaining the benefits of specialty footwear given his notable heel pain impeding exercise activities. Finally, arrangements were made for follow-up consultations to review progress and adjust care where needed. Patient Instructions - Continue taking metformin 500 mg daily as prescribed. - Monitor blood sugar with the glucometer every morning before eating. - Visit lab for blood work, including thyroid test, as soon as possible. - Purchase diabetic socks to alleviate foot discomfort. - Continue focusing on weight loss through diet and easier exercises. - Make an appointment with podiatry for further foot evaluation. - Follow up in a month for ongoing assessment and care adjustments. [facility] Medical History (Updated 09/20/24 @ 16:21 by RAUL Jacobson) Obesity GERD (gastroesophageal reflux disease) COPD (chronic obstructive pulmonary disease) Heel spur Surgical History Hx of colonoscopy (~01/02/22) History of esophagogastroduodenoscopy (EGD) Family History (Updated 09/20/24 @ 15:49 by DENNIS Brody) Mother No problems noted. Father Smoker Heart failure Social History (Updated 09/20/24 @ 15:49 by DENNIS Brody) Housing: House Alcohol intake: current Alcohol intake frequency: a few times a month Patient Tobacco Use Status: Former Tobacco user service: No Current occupational status: employed Cognitive needs: No Hearing needs: No Vision needs: Yes (Reading glasses) Questionnaire PHQ-9 Over the last 2 weeks, how often have you been bothered by any of the following problems? 1. Little interest or pleasure in doing things: not at all 2. Feeling down, depressed, or hopeless: not at all 3. Trouble falling or staying asleep, or sleeping too much: not at all 4. Feeling tired or having little energy: not at all 5. Poor appetite or overeating: not at all 6. Feeling bad about yourself - or that you are a failure or have let yourself or your family down: not at all 7. Trouble concentrating on things, such as reading the newspaper or watching television: not at all 8. Moving or speaking so slowly that other people could have noticed. Or the opposite - being so fidgety or restless that you have been moving around a lot more than usual: not at all 9. Thoughts that you would be better off or of hurting yourself in some way: not at all Total score: 0 Source: Developed by Drs. Mac Juarez, Marya Reynoso, Carl Potts and colleagues, with an educational edgardo from [employer]. Thrive Questionnaire Date Thrive assessed: 09/20/24 I am a: Patient What is your living situation today?: I have a steady place to live Within the past 12 months, did the food you bought not last and you didn't have the money to get more?: Never true Within the past 12 months, did you worry whether your food would run out before you got money to buy more?: Never true Do you have trouble paying for medicines?: No Do you have trouble getting transportation to medical appointments?: No Do you have trouble paying your heating and electricity bill?: No Do you have trouble taking care of your child, family member or friend?: No Do you have trouble with day-to-day activities such as bathing, preparing meals, shopping, managing finances, etc.?: No Are you currently unemployed and looking for a job?: No Are you interested in more education?: No Please select the resources that you would like help with: None THRIVE Score: 0 AUDIT C Alcohol Use Questionnaire (AUDIT-C) 1. How often do you have a drink containing alcohol?: Monthly or less Total Score: 1 DARLEEN-7 AMB Questionnaire DARLEEN-7 Date DARLEEN - 7 assessed: 09/20/24 Feeling nervous, anxious, or on edge: 0 = Not at all Not being able to stop or control worryin = Not at all Worrying too much about different things: 0 = Not at all Trouble relaxin = Not at all Being so restless that it is hard to sit still: 0 = Not at all Becoming easily annoyed or irritable: 0 = Not at all Feeling afraid as if something awful might happen: 0 = Not at all Total DARLEEN-7 score (0-4 normal; 5-9 mild; 10-14 moderate; 15-21 severe): 0 Source: Developed by Drs. Mac Juarez, Marya Reynoso, Carl Potts and colleagues, with an educational edgardo from [employer]. Physical exam (Primary Care) Vital Signs: Last Vital Signs Temp 97.7 F 09/20/24 15:44 Pulse 74 09/20/24 15:44 Resp 16 09/20/24 15:44 BP 138/68 09/20/24 15:44 Pulse Ox 96 09/20/24 15:44 Oxygen Delivery Method Room Air 09/20/24 15:44 BMI result Body Mass Index 42.8 Tobacco/Smoking Status: Tobacco use Status Tobacco use date assessed 09/20/24 09/20/24 15:39 Patient Tobacco Use Status Former Tobacco user 09/20/24 15:49 PHQ-9: PHQ-9 Score PHQ-9: Total score 0 09/20/24 16:26 Thrive Assessment: Date of Thrive Assessment Date Thrive assessed 09/20/24 09/20/24 15:39 Coding Level of Care Code New Pt Level 4 (18217) Complex EM visit Add On G2211 Diagnoses Type 2 diabetes mellitus E11.9 Diabetic polyneuropathy E11.42 COPD (chronic obstructive pulmonary disease) J44.9 GERD (gastroesophageal reflux disease) K21.9 Heel spur M77.30 Obesity E66.9 Assessment & Plan Assessment & Plan (1) Type 2 diabetes mellitus: Code(s): E11.9 - Type 2 diabetes mellitus without complications Category: Medical Plan: Uncontrolled. A1c ordered. Continue metformin, meds to be adjusted pending resutls. Check fasting glucose, goal <130. Diabetic diet and exercise. Blood pressure borderline. Given lisinopril 10mg daily for renal protection and blood pressure management given his DM history (2) Diabetic polyneuropathy: Code(s): E11.42 - Type 2 diabetes mellitus with diabetic polyneuropathy Category: Medical Plan: Recommend diabetic socks. Declines medication. Referred to podiatry (3) COPD (chronic obstructive pulmonary disease): Code(s): J44.9 - Chronic obstructive pulmonary disease, unspecified Category: Medical Plan: Stable. Not on inhalers (4) GERD (gastroesophageal reflux disease): Code(s): K21.9 - Gastro-esophageal reflux disease without esophagitis Category: Medical Plan: Stable. Continue PPI (5) Heel spur: Code(s): M77.30 - Calcaneal spur, unspecified foot Category: Medical Plan: Referred to podiatry (6) Obesity: Comment: Neg sleep study per H&P Code(s): E66.9 - Obesity, unspecified Category: Medical Plan: Congratulated on recent weight loss. Encouraged ongoing weight loss efforts Orders: Orders Hemoglobin A1c 09/20/24 E11.9 - Type 2 diabetes mellitus without complications, E66.9 - Obesity, unspecified TSH reflex Free T4 05/06/25 E11.9 - Type 2 diabetes mellitus without complications, E66.9 - Obesity, unspecified Referrals Podiatry Referral E11.42 - Type 2 diabetes mellitus with diabetic polyneuropathy, M77.30 - Calcaneal spur, unspecified foot Medications: New lisinopril 10 mg PO DAILY 90 tabs 1RF
[2024-09-20 15:44] VITALS: BP 138/68; PULSE 74; RESP 16; TEMP 36.5; O2SAT 96; BMI 42.8
--- OUTSIDE RECORDS SUMMARY | 2024-09-20 16:42 | XMS_ITS | Patient Health Record ---
Author Organization [facility] [place] Address [address] [place] [address] Care Team Providers Care Turkish Rubber Name Role Phone Randall Fuchs MD Primary Care Provider Karan Cartwright Unavailable [phone] Allergies Allergen (clinical drug ingredient) Drug/Non Drug [...] Insured Coverage Start Date Coverage End Date [facility] [address] [place] [address] [phone] [id number] Petros Teran Self - patient is the insured Medical (General) History Medical History History ICD Code Chicken pox Surgical History Surgery Date(Month/Year) EGD/Colonoscopy 11/26/2020
--- OUTSIDE RECORDS SUMMARY | 2024-09-20 16:42 | XMS_ITS | Patient Health Record ---
Author Organization [facility] Address [address] [place] [address] Care Team Providers Care Molecular Pathologist Name Role Phone Randall Fuchs MD Primary Care Provider Mac Spence Unavailable [phone] Allergies Allergen (clinical drug ingredient) Drug/Non Drug Allergy documented on EMR Reaction Allergy Type Onset Date Status Pollen Pollen Unknown Allergy Active Reason For Referral No Information Medications Medication SIG (Take, Route, Fr equency, Duration) Notes Start Date End Date Status Omeprazole 20 MG Oral Act kelsi Advil Active Immunizations Vaccine Route Administration Date Status Comme nts Influenza Unknown 02/29/2020 Administered Influenza Unknown 01/16/2021 Administered Social History Tobacco Use: Social History Observation Description Date Details (start date - stop date) Never Smoker NA - NA Tobacco Use/Smoking Question Answer Notes Patient is [...] monthly (1 point) Points 6 Interpretation Positive Section Notes: Nonsmoker; 2 beers QD Nonsmoker; 2 beers QD Problems Problem Type SNOMED Code ICD Code Onset Dates Problem Status W/U Status Risk Notes Problem Esophageal reflux (101331015) Esophageal reflux (K21.9) Active confirmed Problem 253874086 Encounter for screening for malignant neoplasm of colon (Z12.11) Active confirmed Problem History of polyp of colon (situation) (182463535) Personal history of colonic polyps (Z86.010) Active confirmed Problem Pre-procedure evaluation check (765307233) Encounter for other preprocedural examination (Z01.818) Active confirmed Problem Duodenitis (59886423) Duodenitis (K29.80) Active confirmed Problem Diverticulosis of colon (197172450) Diverticulosis of colon (K57.30) Active confirmed Problem 051956571 Gastroesophageal reflux disease, unspecified whether esophagitis present (K21.9) Active confirmed Plan Of Treatment Pending Test Test Name Order Date Pathology 01/01/2022 Future Test Test Name Order Date UPPER GI ENDOSCOPY 11/06/2020 COLONOSCOPY 11/06/2020 COLONOSCOPY 11/20/2021 Insurance Providers Payer Name Payer Address Payer Phone Subscriber Number Group Number Insured Name Patient Relationship to Insured Coverage Start Date Coverage End Date [facility] [address] [place] [phone] [id number] MATTHEW PEDROZA Self - patient is the insured Medical (General) History Medical History History ICD Code Heel spurs COPD Sleep study was negative for sleep apnea GERD-upper endoscopy in November of 2020 revealed a small hiatal hernia, but no evidence of any significant esophagitis nor Harris's esophagus; there was a mild gastritis but the biopsies were negative for H. pylori Denies [place],DM,CVA,Lung disease,renal dise ase Screening colonoscopy in Nov revealed a large tubulovillous adenoma removed from the cecum and a relatively small tubular adenoma removed from the sigmoid colon; I felt that the majority of the cecal polyp was removed but did recommend a followup colonoscopy within 6-12 months. Surgical History Surgery Date(Month/Year)
== END 2024-09-20 16:29 | disposition home or self-care (01) ==
LOC: HO.HMCHD 15:35
PROVIDERS: PCP Internal Medicine; Visit Provider Physician Assistant
DX: E11.42 Type 2 diabetes mellitus with diabetic polyneuropathy (principal); J44.9 Chronic obstructive pulmonary disease, unspecified; K21.9 Gastro-esophageal reflux disease without esophagitis; M77.30 Calcaneal spur, unspecified foot; E66.9 Obesity, unspecified

== ENCOUNTER 2024-09-28 15:57 | Outpatient (REF) | payer BC, SELFPAY ==
--- OUTSIDE RECORDS SUMMARY | 2024-09-28 15:59 | XMS_ITS | Patient Health Record ---
Author Organization [facility] [place] Address [address] [place] [address] Care Team Providers Care Visitor Services Specialist Name Role Phone Randall Fuchs MD Primary Care Provider Karan Cartwright Unavailable [phone] Allergies Allergen (clinical drug ingredient) Drug/Non Drug [...] Insured Coverage Start Date Coverage End Date [facility] [address] [place] [address] [phone] [id number] Petros Teran Self - patient is the insured Medical (General) History Medical History History ICD Code Chicken pox Surgical History Surgery Date(Month/Year) EGD/Colonoscopy 11/26/2020
--- OUTSIDE RECORDS SUMMARY | 2024-09-28 15:59 | XMS_ITS | Patient Health Record ---
Author Organization [facility] Address [address] [place] [address] Care Team Providers Care Facility Designer Name Role Phone Randall Fuchs MD Primary Care Provider Mac Spence Unavailable [phone] Allergies Allergen (clinical drug ingredient) Drug/Non Drug [...] Status W/U Status Risk Notes Problem Esophageal reflu x (K21.9) Active confirmed Problem 088204989 Encounter for screening for malignant neoplasm of colon (Z12.11) Active confirmed Problem History of polyp of colon (situation) (530953668) Personal history of colonic polyps (Z86.010) Active confirmed Problem Pre-procedure evaluation check (156384575) Encounter for other preprocedural examination (Z01.818) Active confirmed Problem Duodenitis (06677324) Duodenitis (K29.80) Active confirmed Problem Diverticulosis of colon (050503215) Diverticulosis of colon (K57.30) Active confirmed Problem 516322087 Gastroesophageal reflux disease, unspecified whether esophagitis present (K21.9) Active confirmed Plan Of Treatment Pending Test Test Name Order Date Pathology 01/01/2022 Future Test Test Name Order Date UPPER GI ENDOSCOPY 11/06/2020 COLONOSCOPY 11/06/2020 COLONOSCOPY 11/20/2021 Insurance Providers Payer Name Payer Address Payer Phone Subscriber Number Group Number Insured Name Patient Relationship to Insured Coverage Start Date Coverage End Date [facility] [address] [place] [phone] [id number] MATTHEW PEDROZA Self - patient is the insured Medical (General) History Medical History History ICD Code Heel spurs COPD Sleep study was negative for sleep apnea GERD-upper endoscopy in November of 2020 revealed a small hiatal hernia, but no evidence of any significant esophagitis nor Harris's esophagus; there was a mild gastritis but the biopsies were negative for H. pylori Denies [place],DM,CVA,Lung disease,renal dise ase Screening colonoscopy in Nov revealed a large tubulovillous adenoma removed from the cecum and a relatively small tubular adenoma removed from the sigmoid colon; I felt that the majority of the cecal polyp was removed but did recommend a followup colonoscopy within 6-12 months. Surgical History Surgery Date(Month/Year)
[2024-09-28 17:08] LABS: Estimated Average Glucose 240 mg/dL; Hemoglobin A1C 317.0905 umol/L; Total Hemoglobin (HGBA1C) 3696.7588 umol/L
[2024-09-28 17:26] LABS: TSH reflex Free T4 4.45 uIU/mL (0.32-4.0)
== END 2024-09-28 15:58 | disposition home or self-care (01) ==
LOC: HO.LAB 15:57
PROVIDERS: PCP Physician Assistant; Visit Provider Physician Assistant
DX: E66.9 Obesity, unspecified (principal); E11.9 Type 2 diabetes mellitus without complications
CPT/HCPCS: 36415; 83036; 84439; 84443